=== PATIENT | female | born 1950 | race Caucasian/White ===

== ENCOUNTER → 2024-08-22 18:29 | Outpatient (REF) | payer MEDICARE, SELFPAY | LOC: RAD 18:29 | PROVIDERS: ATTENDING PHYSICIAN Family Medicine | DX: M54.30 Sciatica, unspecified side (principal) | CPT/HCPCS: 72110 ==

== ENCOUNTER 2025-04-02 06:14 | Day surgery (SDC) | payer OTHER, SELFPAY ==
--- NOTE | 2025-03-04 13:51 | CM ---
Demographics: confirmed
Living situation: Lived independently with , Jak
Support Person Post Operatively: Jak
History of
VN: No
SNF: No
Outpatient: made appointment with ' [facility] [address]'
Has patient purchased required equipment: yes, has walker
PCP: Dr. Nascimento
Pharmacy: [facility]
Post Operative Discharge Plan: Home with , outpatient PT
[2025-03-17 11:25] VITALS: BMI 20.1
[2025-03-17 11:38] LABS: Hematocrit 35.2 % (37.0-47.0); Hemoglobin 12.3 g/dL (12.0-16.0); Mean Corp Hgb Conc. 34.9 g/dL (33.0-37.0); Mean Corpuscular Volume 88.4 fL (81.0-99.0); Platelet Count 228 10^3/uL (130-400); Red Cell Dist. Width 13.7 % (11.5-14.5)
[2025-03-17 11:56] LABS: Glycohemoglobin (HgbA1c) 5.5 % (4.0-5.6)
[2025-03-17 12:04] LABS: ALT (SGPT) 16 U/L (0-35); AST (SGOT) 19 U/L (14-36); Albumin 4.6 g/dl (3.5-5.0); Alkaline Phosphatase 47 U/L (38-126); Blood Urea Nitrogen 15 mg/dl (7-17); Calcium 9.2 mg/dl (8.4-10.2); Carbon Dioxide 25 mmol/L (22-30); Chloride 106 mmol/L (98-107); Estimated Creatinine Clearance 67 ml/min; Glucose 78 mg/dl (70-99); Potassium 4.4 mmol/L (3.5-5.1); Sodium 137 mmol/L (135-145); Total Protein 7.1 g/dl (6.3-8.2); eGFR > 60.00
[2025-03-17 13:29] LABS: Vitamin D, 25-OH*** 25.4 ng/mL (30-80)
[2025-03-17 13:43] LABS: TSH 0.64 uIU/ml (0.47-4.68)
--- NOTE | 2025-03-21 14:07 | VNURNOTE ---
Rec'ed update that patient will be Same Day Surgery.
Patient is scheduled for an elective L THR on 04/02 - she is a same day patient with Dr Frank. Spoke with patient prior to surgery. Introduced role of [facility] Liaison. Patient reports that she lives with her spouse and he will be available to assist
post-op.
She will borrow a raised toilet seat and rolling walker from her friend.
Discussed [facility] joint protocol and post surgical plans.
Reviewed that she will have VN services initially and will then start outpatient PT.
Patient selects [facility] for home care needs and will go to outpatient PT. Scheduled for 04/04. Advised that pt can re-schedule outpt PT to the Monday after surgery. Patient declined, wanting to keep her appt on 04/04.
Patient is in agreement with plan and states that her spouse will be home with her. Advised to bring RW day of surgery. Referral placed in [facility].
Plan: [facility] per [facility] joint protocol 04/02 then outpt PT on 04/04
[2025-03-21 16:33] VITALS: BMI 20.1
--- NOTE | 2025-03-26 11:19 | VNURNOTE ---
Rec'ed update that patient will be [facility]/ Same Day Surgery.
Patient is scheduled for an elective L THR on 04/02, she will stay overnight and start Outpt PT on 04/04. Called pt, confirmed all of the above. Patient appreciative and verbalized understanding.
No [facility], pt to start Outpt PT on 04/04.
[facility] Intake updated, made Non-admit for HH.
[2025-04-02] VITALS (25 sets, daily range): BP systolic 89–118; BP diastolic 41–85; PULSE 66–69; O2SAT 95–96
[2025-04-02] MEDS: TYLENOL 650 MG PO ×5 (07:07→23:29)
[2025-04-02] MEDS: CELEBREX 200 MG PO (07:07)
[2025-04-02] MEDS: NORMOSOL-R/PLASMALYTE-A 1000 IV ×2 (07:08→09:00)
--- NOTE | 2025-04-02 07:12 | W.PN.ORTHO ---
Today's Communication / Plan
-
d/c am when stable-early d/c
Assessment
.
Dressing:
Clean, dry and intact.
Assessment:
Hx Unprovoked b/l PE
Pain control-
Oxy _ Gabapentin at hs
Abnormal thyroid panel
Underweight
Recent tobacco
-Endocrine OP
-Bone density OP
-Cefadroxil ppx
Plan
.
Surgery / Date: L BAYLEE Dkoren 04/02/25r Vi
DVT Prophylaxis: Other (Eliquis + SCD)
Activity:
Out of bed.
PT/OT
Discharge Plan: Home w/ Outpatient PT
Vital Signs and Labs
.
Vital Signs and Labs:
Lab Results
03/17/25 10:28
03/17/25 10:28
--- NOTE | 2025-04-02 07:32 | W.DS.TRANS ---
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
-
Discharge Instructions:
Sleep Apnea Risk Low
Discharge Diagnosis/Procedures L BAYLEE Dr Frank 04/02/25
Diet As tolerated
Activity With Walker
Additional Activity SCD/BLOOD CLOT PREVENTION DEVICE WHEN SITTING
AND SLEEPING
Driving Restrictions No driving
Bathing Restrictions OK to Shower
Others Tests bone density outpatient
Other Services PT
Instructions:
Stand-Alone Forms: Total Hip/Knee Replacement D/C
Changes to Home Medications: Yes
Discharge Medications:
DC Medications w/original date entered in [facility]
methylphenidate HCl 10 mg tablet 10 mg PO TID 09/04/20
mirtazapine 15 mg tablet 15 mg PO HS 09/04/20
nicotine 14 mg/24 hr daily transdermal patch 14 mg transdermal DAILY 09/04/20
Coenzyme Bcomplex 1 tab PO DAILY 03/14/25
Held on 04/02/25. Instructions: Resume on 04/10/25.
benztropine 0.5 mg tablet 0.5 mg PO HS 03/14/25
famotidine 20 mg tablet (Pepcid) 40 mg PO DAILY@1800 03/14/25
ferrous sulfate 325 mg (65 mg iron) tablet (iron) 325 mg PO DAILY 03/14/25
hydroxyzine pamoate 50 mg capsule 50 mg PO TID PRN anxiety 03/14/25
lurasidone 120 mg tablet (Latuda) 120 mg PO DAILY@1800 03/14/25
mupirocin 2 % topical ointment 1 applic topical BID infection prevention #1 tube 03/14/25
trazodone 50 mg tablet 50 mg PO HS 03/14/25
apixaban 2.5 mg tablet (Eliquis) 2.5 mg PO BID Blood clot prevention/tx #90 tabs 03/17/25
cefadroxil 500 mg capsule 500 mg PO BID infection prevention #14 caps 03/17/25
gabapentin 300 mg capsule 300 mg PO HS sleep/pain #10 caps 03/17/25
ondansetron 4 mg disintegrating tablet 4 mg PO Q6H PRN n/v #20 tabs 03/17/25
oxycodone 5 mg tablet 5 mg PO Q6H PRN 1 tab moderate pain, 2 tabs severe pain #30 tabs 03/17/25
ergocalciferol (vitamin D2) 50 mcg (2,000 unit) capsule 50 mcg PO .twice weekly vitamin D deficiency #24 caps 03/18/25
Saccharomyces boulardii 250 mg capsule (Florastor) 250 mg PO BID #1 cap 04/02/25
docusate sodium 100 mg capsule (Colace) 100 mg PO BID stool softner #1 cap 04/02/25
magnesium hydroxide 400 mg/5 mL oral suspension (Milk of Magnesia) 30 ml PO HS PRN constipation #1 mL 04/02/25
sennosides 8.6 mg tablet (Senokot) 17.2 mg (2 x 8.6 mg) PO BID laxative #2 tabs 04/02/25
Home Medication Changes
mupirocin 2 % topical ointment 1 applic topical BID infection prevention #1 tube 03/14/25
trazodone 50 mg tablet 50 mg PO HS 03/14/25
apixaban 2.5 mg tablet (Eliquis) 2.5 mg PO BID Blood clot prevention/tx #90 tabs 03/17/25
cefadroxil 500 mg capsule 500 mg PO BID infection prevention #14 caps 03/17/25
gabapentin 300 mg capsule 300 mg PO HS sleep/pain #10 caps 03/17/25
ondansetron 4 mg disintegrating tablet 4 mg PO Q6H PRN n/v #20 tabs 03/17/25
oxycodone 5 mg tablet 5 mg PO Q6H PRN 1 tab moderate pain, 2 tabs severe pain #30 tabs 03/17/25
ergocalciferol (vitamin D2) 50 mcg (2,000 unit) capsule 50 mcg PO .twice weekly vitamin D deficiency #24 caps 03/18/25
Saccharomyces boulardii 250 mg capsule (Florastor) 250 mg PO BID #1 cap 04/02/25
docusate sodium 100 mg capsule (Colace) 100 mg PO BID stool softner #1 cap 04/02/25
magnesium hydroxide 400 mg/5 mL oral suspension (Milk of Magnesia) 30 ml PO HS PRN constipation #1 mL 04/02/25
sennosides 8.6 mg tablet (Senokot) 17.2 mg (2 x 8.6 mg) PO BID laxative #2 tabs 04/02/25
Pending Results: No
[2025-04-02] MEDS: NICODERM TRANSDERMAL 14 MG TRANSDERM (10:02)
[2025-04-02] MEDS: FEOSOL 325 MG PO (10:02)
[2025-04-02] MEDS: RITALIN 10 MG PO ×3 (10:16→20:46)
--- NOTE | 2025-04-02 12:05 | PTCARENOTE ---
Addendum 1100 Bladder slightly distended, bladder scan indicated 353ML retained urien. Patient will drink additional fluid. Will allow more time. Patient remains comfortable .
--- NOTE | 2025-04-02 12:10 | PTCARENOTE ---
1200 Patient remains comfortably, bladder slightly distended, but soft patient reports she may be able to urinate at this time. Report was given to [facility] RN and patient transferred to [facility]. Will attempt to void in [facility] .
[2025-04-02] MEDS: ANCEF 5 IV ×2 (14:12→20:48)
[2025-04-02] MEDS: ROXICODONE 5 MG PO (14:50)
[2025-04-02] MEDS: ATARAX 50 MG PO (15:48)
--- NOTE | 2025-04-02 16:03 | PTCARENOTE ---
Pt arrived 1430 from PACU. Pt AAOX3. VSS. pain 6/10 medicated per MAR. IVF infusing. neurovascular checks with in normal limits. oriented to room and call edgar. be locked and in lowest position. at bed side. care ongoing.
[2025-04-02] MEDS: PEPCID 40 MG PO (18:05)
[2025-04-02] MEDS: LATUDA 120 MG PO (18:05)
[2025-04-02] MEDS: ROXICODONE 10 MG PO (19:21)
[2025-04-02] MEDS: SENOKOT 17.2 MG PO (20:45)
[2025-04-02] MEDS: REMERON 15 MG PO (20:46)
[2025-04-02] MEDS: COGENTIN 0.5 MG PO (20:46)
[2025-04-02] MEDS: DESYREL 50 MG PO (20:46)
[2025-04-02] MEDS: ELIQUIS 2.5 MG PO (20:47)
[2025-04-02] MEDS: COLACE 100 MG PO (20:47)
[2025-04-02] MEDS: NEURONTIN 300 MG PO (20:48)
[2025-04-02] MEDS: BACTROBAN 2% OINTMENT 1 APPLIC NASAL (23:24)
[2025-04-03] VITALS (8 sets, daily range): BP systolic 102–131; BP diastolic 43–59; PULSE 60–67; O2SAT 94–95
[2025-04-03] MEDS: ROXICODONE 5 MG PO ×3 (01:58→14:05)
[2025-04-03] MEDS: TYLENOL PO (04:36)
[2025-04-03] MEDS: TYLENOL 650 MG PO ×4 (07:55→20:32)
[2025-04-03] MEDS: RITALIN 10 MG PO ×3 (07:55→20:34)
[2025-04-03] MEDS: ELIQUIS 2.5 MG PO ×2 (07:55→20:33)
[2025-04-03] MEDS: FEOSOL 325 MG PO (07:55)
[2025-04-03] MEDS: SENOKOT 17.2 MG PO ×2 (07:56→20:34)
[2025-04-03] MEDS: COLACE 100 MG PO ×2 (07:56→20:33)
[2025-04-03] MEDS: BACTROBAN 2% OINTMENT 1 APPLIC NASAL ×2 (07:56→20:31)
[2025-04-03] MEDS: NICODERM TRANSDERMAL 14 MG TRANSDERM (08:28)
--- NOTE | 2025-04-03 08:54 | CM ---
CM reviewed medical records. CM updated [facility] Admission RN with new referral.
PLAN: home with [facility].
--- NOTE | 2025-04-03 12:12 | W.PN.ORTHO ---
Today's Communication / Plan
-
await Xr and lab
d/c when stable
Assessment
.
Distal Motor Intact: Yes
Dressing:
Clean, dry and intact.
Assessment:
Rhonchi/wheezing on exam-patient states she feels congested and has recently stopped smoking
-given potential for lung infiltrate--CXR, nebs, IV Decadron, incentive spirometry, check BNP-she has been provided abx ppx OP
Hx Unprovoked b/l PE
Pain control-
Oxy, Gabapentin at hs
Abnormal thyroid panel
Underweight
Recent tobacco
-Endocrine OP
-Bone density OP
-Cefadroxil ppx
Plan
.
Surgery / Date: L BAYLEE Dkoren 04/02/25r Vi
DVT Prophylaxis: Other (Eliquis + SCD)
Activity:
Out of bed.
PT/OT
Discharge Plan: Home w/ VN
Subjective
.
.:
Congested with cough-(no exudate)
Vital Signs and Labs
.
Vital Signs and Labs:
Lab Results
03/17/25 10:28
03/17/25 10:28
Temp Pulse Resp BP Pulse Ox
97.9 F 89 18 131/59 96
04/03/25 07:20 04/03/25 07:20 04/03/25 07:20 04/03/25 07:20 04/03/25 07:20
Non-invasive Hgb result: 10.4
Physical Exam
-
HEENT: No pallor, cyanosis, or jaundice. Throat clear.
NECK: Supple. No JVD.
RESPIRATORY: Lungs clear to auscultation.
CVS: S1, S2 normal. RRR.� No murmur, rub or gallop.
ABDOMEN: Soft, non-tender. No distension. BS+/normal.
EXTREMITIES: strength equal, no calf pain with palpation
LEAF SORTER: AOx3. No focal deficits. 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
[2025-04-03] MEDS: DUONEB 3 ML INH ×3 (12:50→20:23)
[2025-04-03] MEDS: LASIX 20 MG IV (14:54)
[2025-04-03] MEDS: DECADRON 4 MG IV ×2 (14:54→20:34)
[2025-04-03] MEDS: LATUDA 120 MG PO (17:50)
[2025-04-03] MEDS: PEPCID 40 MG PO (17:50)
[2025-04-03] MEDS: REMERON 15 MG PO (20:32)
[2025-04-03] MEDS: COGENTIN 0.5 MG PO (20:33)
[2025-04-03] MEDS: NEURONTIN 300 MG PO (20:33)
[2025-04-03] MEDS: DESYREL 50 MG PO (20:33)
[2025-04-04] MEDS: TYLENOL 650 MG PO ×2 (00:12→08:54)
[2025-04-04] MEDS: TYLENOL PO (04:07)
[2025-04-04 07:10] VITALS: BP 162/69
[2025-04-04] MEDS: DUONEB 3 ML INH ×2 (07:15→11:11)
[2025-04-04] MEDS: FEOSOL 325 MG PO (08:53)
[2025-04-04] MEDS: RITALIN 10 MG PO (08:53)
[2025-04-04] MEDS: ELIQUIS 2.5 MG PO (08:53)
[2025-04-04] MEDS: COLACE 100 MG PO (08:53)
[2025-04-04] MEDS: NICODERM TRANSDERMAL 14 MG TRANSDERM (08:55)
[2025-04-04] MEDS: LASIX 20 MG IV (08:55)
[2025-04-04] MEDS: SENOKOT 17.2 MG PO (08:56)
[2025-04-04] MEDS: DECADRON 4 MG IV (08:56)
[2025-04-04] MEDS: ROXICODONE 5 MG PO (09:00)
[2025-04-04 10:04] VITALS: BP 130/55; BP 144/76; PULSE 80; O2SAT 95
[2025-04-04 10:21] VITALS: BP 123/63; PULSE 89; O2SAT 92
--- NOTE | 2025-04-04 12:51 | CM ---
CM reviewed medical records. Plan for discharge to home with [facility].
PLAN: Home with [facility].
--- NOTE | 2025-04-04 13:01 | W.PN.ORTHO ---
Today's Communication / Plan
-
d/c
Assessment
.
Distal Motor Intact: Yes
Dressing:
Clean, dry and intact.
Assessment:
Rhonchi/wheezing on exam-patient states she feels congested and has recently stopped smoking
-given potential for lung infiltrate--CXR, nebs, IV Decadron, incentive spirometry
-CXR clear, BNP mildly elevated-resolved POD#2--Lungs CTA-she has been provided abx ppx OP
Hx Unprovoked b/l PE
Pain control-
Oxy, Gabapentin at hs
Abnormal thyroid panel
Underweight
Recent tobacco
-Endocrine OP
-Bone density OP
-Cefadroxil ppx
Plan
.
Surgery / Date: L BAYLEE Dkoren 04/02/25r Vi
DVT Prophylaxis: Other (Eliquis+ SCD)
Activity:
Out of bed.
PT/OT
Discharge Plan: Home w/ Outpatient PT
Subjective
.
.:
Patient resting comfortably.
Vital Signs and Labs
.
Vital Signs and Labs:
Lab Results
03/17/25 10:28
03/17/25 10:28
Temp Pulse Resp BP Pulse Ox
98.3 F 73 18 162/69 96
04/04/25 07:10 04/04/25 11:13 04/04/25 07:18 04/04/25 08:54 04/04/25 11:13
Non-invasive Hgb result: 10.4
Physical Exam
-
HEENT: No pallor, cyanosis, or jaundice. Throat clear.
NECK: Supple. No JVD.
RESPIRATORY: Lungs clear to auscultation.
CVS: S1, S2 normal. RRR.� No murmur, rub or gallop.
ABDOMEN: Soft, non-tender. No distension. BS+/normal.
EXTREMITIES: strength equal, no calf pain with palpation
UNIT TENDER: AOx3. No focal deficits. vice president mission integration grossly intact
[2025-04-04 13:46] VITALS: BP 146/69
== END 2025-04-04 14:45 | disposition home health service (06) ==
LOC: SDS 06:14
PROVIDERS: ATTENDING PHYSICIAN Orthopaedic Surgery; FAMILY PHYSICIAN Family Medicine; OTHER PHYSICIAN Physician Assistant Medical
DX: M16.12 Unilateral primary osteoarthritis, left hip (principal)
CPT/HCPCS: 27130; 36415; 71046; 73502; 80053; 82306; 83036; 83880; 84443; 85027; 87070; 93005; 94640; 97110; 97116; 97163; 97167; 97530; 97535; C1713; C1776